=== PATIENT | male | born 1965 | race African-American/Black ===

== ENCOUNTER 2021-09-29 16:34 | Emergency (ER) | payer MEDICAID ==
[~2021-09-29] VITALS: Ht 162.6 cm; Wt 60.0 kg
[2021-09-29] MEDS ORDERED: IBUPROFEN 600MG TABLET PO ONE (18:00)
[2021-09-29] MEDS ORDERED: INSU100I28 SQ (19:04)
[2021-09-29] MEDS ORDERED: LISI10TA26 MT (19:04)
[2021-09-29] MEDS ORDERED: METF-416 MT (19:04)
[2021-09-29] MEDS ORDERED: INSULIN REGULAR (HUMULIN R) UD 100 UNITS/ML SYR SUBCUT ONE (20:00)
[2021-09-29] MEDS ORDERED: INSULIN REGULAR (HUMULIN R) 300UNITS/3ML VIAL SUBCUT NR (20:15)
[2021-09-29] MEDS ORDERED: LISINOPRIL 10MG TABLET PO ONE (21:00)
[2021-09-30 15:11] VITALS: BP 141/71
== END 2021-09-30 15:12 | disposition home or self-care (01) ==
LOC: ER 16:34
DX: S30.0XXA Contusion of lower back and pelvis, initial encounter (principal); E11.65 Type 2 diabetes mellitus with hyperglycemia; W18.39XA Other fall on same level, initial encounter; Y93.89 Activity, other specified; Y92.89 Other specified places as the place of occurrence of the external cause; Y99.8 Other external cause status; E11.9 Type 2 diabetes mellitus without complications; I10 Essential (primary) hypertension; F20.9 Schizophrenia, unspecified
CPT/HCPCS: 72100; 72170; 82962; 96372; 99285; J1815

== ENCOUNTER 2021-10-01 05:50 | Emergency (ER) | payer MEDICAID ==
[~2021-10-01] VITALS: Ht 167.6 cm; Wt 68.0 kg
[~2021-10-01 05:50] MED LIST: INSU100I28 SQ; LISI10TA26 MT; METF-416 MT
[2021-10-01 05:55] VITALS: BP 178/91
[2021-10-01 09:32] LABS: HEMATOCRIT. 32.4 % (42.0-52.0); HEMOGLOBIN. 9.7 g/dL (14.0-18.0); MEAN CORPUSCULAR HEMOGLOBIN 21.2 pg (28.0-32.0); MEAN PLATELET VOLUME 8.6 fl (7.4-10.4); PLATELET 342 x1000/uL (130-400); RED BLOOD CELL COUNT 4.57 mill/uL (4.7-6.1); RED CELL DISTRIBUTION WIDTH 28.9 % (11.6-14.6)
[2021-10-01 09:45] LABS: CHLORIDE 98 mEq/L (98-107)
[2021-10-01 09:54] LABS: ETHANOL BLOOD < 10 mg/dL
[2021-10-01 10:15] LABS: PLATELET ESTIMATE NORMAL
[2021-10-01] MEDS ORDERED: MAGNESIUM/ALUMINUM HYDROXIDE/SIMETHICONE 30ML UDC PO ONE (12:45)
== END 2021-10-01 14:36 | disposition left against medical advice (07) ==
LOC: ER 05:50
DX: R10.13 Epigastric pain (principal); E11.65 Type 2 diabetes mellitus with hyperglycemia; I10 Essential (primary) hypertension; R94.31 Abnormal electrocardiogram [ECG] [EKG]; E46 Unspecified protein-calorie malnutrition; Z68.24 Body mass index [BMI] 24.0-24.9, adult; R79.89 Other specified abnormal findings of blood chemistry; Z79.4 Long term (current) use of insulin
CPT/HCPCS: 36415; 71045; 80053; 80320; 84484; 85025; 93005; 99285; G0480